=== PATIENT | female | born 1985 | race Caucasian/White ===

== ENCOUNTER 2019-08-11 20:16 | Emergency (ER) | payer OTHER, SELFPAY ==
[2019-08-11 20:17] VITALS: BP 144/76; PULSE 107; RESP 18; TEMP 37.3; O2SAT 94; BMI 50.6
[2019-08-11 20:37] VITALS: O2SAT 96
--- NOTE | 2019-08-11 20:50 | EKG12_ITS ---
Test Reason : SOB Blood Pressure : / mmHG Vent. Rate : 094 BPM Atrial Rate : 094 BPM P-R Int : 150 ms QRS Dur : 088 ms QT Int : 330 ms P-R-T Axes : 022 014 041 degrees QTc Int : 412 ms Normal sinus rhythm Normal ECG Confirmed by FRANKI VELASQUEZ, MIRTHA ([id number]), rewrite editor FARHANA RO ([id number]) on 08/16/2019 1:59:35 PM Referred By: DC Confirmed By:SAHRA DOAN MD
[2019-08-11] MEDS: Ipratropium/Albuterol Sulfate 3 ML AMPUL.NEB INHALATION (21:02)
[2019-08-11 21:06] VITALS: O2SAT 96
[2019-08-11 21:07] VITALS: PULSE 95; RESP 16
[2019-08-11 21:09] LABS: Absolute Lymphocyte Count 1.18 X10^3/uL (0.83-4.51); Absolute Neutrophil Count 2.7 X10^3/uL (2.0-7.7); Basophil# 0.02 X10^3/uL; Basophil% 0.4 % (0-1); Eosinophil# 0.04 X10^3/uL; Eosinophils% 0.9 % (0-5); Hematocrit 40.1 % (37-47); Hemoglobin 12.7 g/dL (12.0-15.0); Lymphocyte # 1.18 X10^3/ul (4.0); Lymphocyte % 25.8 % (19-41); Mean Corp Hgb Conc 31.7 g/dL (32-36); Mean Corpuscular Hgb 26.6 pg (27.0-32.0); Mean Corpuscular Volume 83.9 fL (81-99); Mean Platelet Vol. 9.6 fl (6.2-12.0); Monocyte# 0.67 X10^3/uL; Monocyte% 14.7 % (0-10); NRBC Flagged by Analyzer 0 % (0-5); Neutrophil # 2.65 X10^3/uL (2.7-7.7); Platelet Count 222 K/mm3 (150-450); RBC Distribution Width CV 13.7 % (11.6-14.6); RBC Distribution Width SD 41.9 fl (35.1-43.9); Red Blood Count 4.78 M/mm3 (4.2-5.4); White Blood Count 4.6 K/mm3 (4.4-11.0)
--- NOTE | 2019-08-11 21:22 | ED.VISSUMM ---
- ER Visit Summary Date of Service: 08/11/19 Chief Complaint: Shortness of breath History of Present Illness: The patient is a 33 F with a history of type 1 diabetes, hypertension, asthma. Patient's tested positive for coronavirus 19. She is having shortness of breath, cough, chest pain, headache, fatigue. Physical Examination: Afebrile and vital signs unremarkable except for heart rate of 107. Patient is nontoxic and in no acute distress. Heart regular. No respiratory distress. Skin appears normal. Test Results: EKG shows sinus rhythm at a rate of 94. No sign of ischemia or infarction pattern. Chest x-ray and labs are pending. Emergency Department Course and Treatment: Patient had coronavirus precautions. She was treated with DuoNeb and Toradol. We did not test her for COVID-19. Her is positive and I suspect the test has no clinical utility. She is positive based on her symptoms. I did check the work-up as above given her symptoms. Will reassess. CBC, BMP, troponin, chest x-ray showed nothing acute/unremarkable. Patient will be discharged home. Outpatient precautions. Symptomatic care. Return if worse. Treatment Plan: As above Disposition: Discharge Impression: COVID-19 suspected This note was generated with [employer] dictation software. It may contain incorrect words, spelling, and punctuation that were not noted in review of the chart prior to signing ED Disposition - Plan for ED Patient: Referrals: [facility] Doctor,Out of [NON-STAFF] -
--- NOTE | 2019-08-11 21:25 | RAD_ITS ---
STUDY: X-RAY CHEST REASON FOR EXAM: Female, 33 years old. SOB, TESTED POSITIVE FOR COVID YESTERDAY TECHNIQUE: Single frontal view of the chest. COMPARISON: None. FINDINGS: Cardiac silhouette unremarkable. Pulmonary vascularity unremarkable. Aorta unremarkable. No focal airspace opacities. No pleural effusions. Upper abdomen unremarkable. Osseous structures intact. No pneumothorax. RAD/Chest 1 View (Portable) IMPRESSION: No acute cardiopulmonary findings Electronically Signed: Lee Adams, at 22:02 EDT Tel , Service support ,
[2019-08-11 21:28] LABS: Anion Gap 8 (5-15); BUN 11 mg/dL (7-18); BUN/Creat Ratio 12.3 RATIO (10-20); Calcium,Total 8.3 mg/dL (8.5-10.1); Chloride 108 mmol/L (98-107); Creatinine, Serum 0.89 mg/dL (0.55-1.02); EST Glomerular Filtration Rate 77 mL/min (>60); Est Glom Filt Rate - Afr Amer 93 mL/min (>60); Estimated Creatinine Clearance 76.91 ml/min; Glucose 295 mg/dL (74-106); Potassium 3.5 mmol/L (3.5-5.1); Sodium Level 137 mmol/L (136-145)
--- NOTE | 2019-08-11 22:06 | ED.DEP ---
ED Disposition - Plan for ED Patient: Instructions: ED Upper Resp Infec No Abx Tx Prescriptions: Benzonatate [Tessalon Perle] 200 mg PO TID PRN PRN #20 cap PRN Reason: Cough Prescription Printed Referrals: Elise Parrish [NON-STAFF] - As Needed
[2019-08-11 22:17] VITALS: BP 146/76; PULSE 104; RESP 18; O2SAT 94
== END 2019-08-11 22:21 | disposition home or self-care (01) ==
PROVIDERS: Emergency Provider Emergency Medicine; PCP Family Medicine
DX: R06.02 Shortness of breath (principal); R07.9 Chest pain, unspecified; R05 Cough; R51 Headache; R53.83 Other fatigue; Z20.828 Contact with and (suspected) exposure to other viral communicable diseases; I10 Essential (primary) hypertension; E10.9 Type 1 diabetes mellitus without complications; J45.909 Unspecified asthma, uncomplicated; Z79.4 Long term (current) use of insulin; Z79.82 Long term (current) use of aspirin; Z79.899 Other long term (current) drug therapy
CPT/HCPCS: 71045; 80048; 84484; 85025; 93005; 94640; 99284; A4216

== ENCOUNTER 2019-08-16 14:31 | Emergency (ER) | payer OTHER, SELFPAY ==
[2019-08-16 14:33] VITALS: BP 120/75; PULSE 97; RESP 18; TEMP 36.6; O2SAT 94; BMI 50.6
[2019-08-16] MEDS: 0.9% Normal Saline 1,000 ML 1000 ML IV (15:01)
[2019-08-16] MEDS: Ondansetron 4 MG/2 ML Vial IV ×2 (15:01→18:18)
[2019-08-16 15:12] LABS: Absolute Lymphocyte Count 1.12 X10^3/uL (0.83-4.51); Absolute Neutrophil Count 2.8 X10^3/uL (2.0-7.7); Basophil# 0.01 X10^3/uL; Basophil% 0.2 % (0-1); Hematocrit 43.5 % (37-47); Lymphocyte # 1.12 X10^3/ul (4.0); Lymphocyte % 27.1 % (19-41); Mean Corp Hgb Conc 32.2 g/dL (32-36); Mean Corpuscular Hgb 26.9 pg (27.0-32.0); Mean Corpuscular Volume 83.5 fL (81-99); Mean Platelet Vol. 9.6 fl (6.2-12.0); Monocyte# 0.21 X10^3/uL; Monocyte% 5.1 % (0-10); NRBC Flagged by Analyzer 0 % (0-5); Neutrophil # 2.78 X10^3/uL (2.7-7.7); Neutrophil % 67.4 % (47-70); POSITIVE MORPHOLOGY YES; Platelet Count 207 K/mm3 (150-450); RBC Distribution Width SD 42.1 fl (35.1-43.9); Red Blood Count 5.21 M/mm3 (4.2-5.4); White Blood Count 4.1 K/mm3 (4.4-11.0)
[2019-08-16 15:20] LABS: Differential Indicated SCAN CRITERIA MET
--- NOTE | 2019-08-16 15:20 | RAD_ITS ---
STUDY: X-RAY CHEST REASON FOR EXAM: Female, 33 years old. Cough, fever, shortness of breath, was Dx with COVID last week TECHNIQUE: Single AP portable view of the chest. COMPARISON: Comparison is made with prior study dated August 11, 2019. FINDINGS: There now is evidence of bone bilateral focal infiltrates worse in the right lower lobe. There is no demonstrated pleural abnormality. Normal size heart. Normal mediastinum and mei. Normal visualized pulmonary arteries. Normal visualized aortic arch and descending thoracic aorta. Normal visualized thoracic spine. Normal visualized ribs, clavicles, and shoulders. There is no demonstrated abnormality of the visualized soft tissue structures of the upper abdomen. RAD/Chest 1 View (Portable) IMPRESSION: Bilateral pulmonary infiltrates worse in the right lower lobe. Follow-up is recommended. Electronically Signed: Yung Vidal, at 15:47 EDT , Service support ,
[2019-08-16 15:21] LABS: Internal QC Validated? YES +Cl - CLEAR BKGD; Pregnancy, Serum, hCG Quali. NEGATIVE Negative
[2019-08-16 15:29] LABS: ALB/GLOB Ratio 0.8 RATIO (0.9-2.4); AST(SGOT) 129 U/L (15-37); Alanine Aminotransfer ALT/SGPT 186 U/L (13-56); Alkaline Phosphatase 79 U/L (45-117); Anion Gap 5 (5-15); BUN 9 mg/dL (7-18); BUN/Creat Ratio 11.5 RATIO (10-20); Chloride 110 mmol/L (98-107); Creatinine, Serum 0.78 mg/dL (0.55-1.02); EST Glomerular Filtration Rate 89 mL/min (>60); Est Glom Filt Rate - Afr Amer 108 mL/min (>60); Estimated Creatinine Clearance 87.76 ml/min; Glucose 233 mg/dL (74-106); Potassium 3.4 mmol/L (3.5-5.1); Sodium Level 139 mmol/L (136-145)
--- NOTE | 2019-08-16 15:36 | ED.DCSUM_ITS ---
History of Present Illness Chief Complaint: Fever Narrative: Patient presenting for evaluation secondary to generalized illness. Patient reports that her last week tested positive for coronavirus. Patient states that about on Friday she started to develop symptoms herself. She was seen for this, and was told that she presumptively was positive but was not tested. Patient reports that since then she has been having diarrhea, cough, fevers, body aches. She reports that she has been having some worsening exertional dyspnea. Patient also reports that within the last 48 hours she has developed vomiting and has had difficulty with keeping down fluid or foods. Patient states that she does not have any blood in her emesis or in her stool. She does have an underlying history of asthma. Patient took Tylenol prior to arrival. Review of systems otherwise negative. Past Medical History - Allergies and Home Meds Allergies/Adverse Reactions: Allergies bupropion HCl [From Wellbutrin] Allergy (Verified 08/16/19 14:32) Other sumatriptan [From Imitrex] Allergy (Verified 08/16/19 14:32) Anaphylaxis sumatriptan succinate [From Imitrex] Allergy (Verified 08/16/19 14:32) Anaphylaxis Primary Care Physician: Sherley Mendoza MD [Primary Care Provider] - Prior records reviewed: Yes Past Medical History: - - Asthma, diabetes Lives: Spouse/ Significant Other Smoking Status: Former smoker Alcohol: None Drugs: None Review of Systems All systems negative except as indicated General: Reports: Fever, Malaise Eyes: Denies: Visual changes - bilaterally, Diplopia ENT: Denies: Rhinorrhea, Sore throat Cardiovascular: Denies: Chest pain, Palpitations Respiratory: Reports: Dyspnea, Cough Gastrointestinal: Reports: Nausea, Vomiting, Diarrhea Genitourinary: Denies: Dysuria, Hematuria, Frequency Musculoskeletal: Denies: Back pain, Extremity Pain Skin: Denies: Rash, Wounds Neurological: Denies: Headache, Weakness, Numbness Physical Exam Vital Signs/Narrative: Vital Signs Temp Pulse Resp BP Pulse Ox 08/16/19 14:33 97.8 F 97 18 120/75 94 Inital Vital Signs reviewed: Yes General: Well nourished, Well developed, No Acute Distress Head: Normocephalic, Atraumatic Eyes: Perrl, EOMI ENT: No rhinorrhea, Dry mucous membranes Neck: Supple, Nontender Cardiovascular: Regular rate, Regular rhythm, No murmurs Respiratory: No distress Abdomen: Soft, Nontender, Nondistended, Normal bowel sounds Back: Nontender, Normal Inspection Extremities: Nontender, No edema Skin: Normal color, No rash Neurological: Alert, Oriented x3, Cranial nerves II-XII grossly intact, Normal Strength, Normal Sensation Psychological: Normal affect, Normal Mood Diagnostic/Tx/Re-eval Clinical Impression(s) from Imaging Studies Chest X-Ray 08/16/19 15:20 IMPRESSION: Bilateral pulmonary infiltrates worse in the right lower lobe. Follow-up is recommended. Electronically Signed: Yung Vidal, at 15:47 EDT , Service support , Laboratory Data 08/16/19 08/16/19 08/16/19 15:00 15:00 15:00 WBC 4.1 L RBC 5.21 Hgb 14.0 Hct 43.5 MCV 83.5 MCH 26.9 L MCHC 32.2 RDW Std Deviation 42.1 RDW Coeff of Colin 14.0 Plt Count 207 MPV 9.6 Immature Gran % (Auto) 0.200 Neut % (Auto) 67.4 Lymph % (Auto) 27.1 [place] % (Auto) 5.1 Eos % (Auto) 0.0 Baso % (Auto) 0.2 Absolute Neuts (auto) 2.8 Absolute Lymphs (auto) 1.12 Nucleated RBC % 0 Differential Comment Platelet Estimate ADEQUATE RBC Morphology NORM C+C Sodium 139 Potassium 3.4 L Chloride 110 H Carbon Dioxide 24.0 Anion Gap 5 BUN 9 Creatinine 0.78 Estim Creat Clear Calc 87.76 Est GFR (MDRD) Af Amer 108 Est GFR (MDRD) Non-Af 89 BUN/Creatinine Ratio 11.5 Glucose 233 H Lactic Acid 1.6 Calcium 8.0 L Total Bilirubin 0.40 AST 129 H ALT 186 H Alkaline Phosphatase 79 Total Protein 7.0 Albumin 3.0 L Globulin 4.0 Albumin/Globulin Ratio 0.8 L Serum , Qual 08/16/19 15:00 WBC RBC Hgb Hct MCV MCH MCHC RDW Std Deviation RDW Coeff of Colin Plt Count MPV Immature Gran % (Auto) Neut % (Auto) Lymph % (Auto) [place] % (Auto) Eos % (Auto) Baso % (Auto) Absolute Neuts (auto) Absolute Lymphs (auto) Nucleated RBC % Differential Comment Platelet Estimate RBC Morphology Sodium Potassium Chloride Carbon Dioxide Anion Gap BUN Creatinine Estim Creat Clear Calc Est GFR (MDRD) Af Amer Est GFR (MDRD) Non-Af BUN/Creatinine Ratio Glucose Lactic Acid Calcium Total Bilirubin AST ALT Alkaline Phosphatase Total Protein Albumin Globulin Albumin/Globulin Ratio Serum , Qual NEGATIVE - Medical Decision Making Patient presented due to concern for coronavirus infection and inability to tolerate p.o. IV was established laboratory studies were obtained, patient was given Zofran and a liter normal saline. She had improvement of her nausea. Patient's chest x-ray shows bilateral infiltrates consistent with coronavirus infection. Swab is pending. CBC unremarkable, chemistry does not show s ignificant dehydration or electrolyte derangement, patient does have hyperglycemia. Patient has modest elevation of transaminases in the 100s, but no evidence of liver failure. I reevaluated the patient at 1600, she was able to walk in place next to the bed and did not have desaturation but she did feel somewhat lightheaded. I discussed with the patient about home treatment versus hospital treatments, and I feel at this point that the patient does not yet meet criteria for inpatient treatment as she is not hypoxic, dehydrated, and she is tolerating p.o. Patient did have some asymmetry on her chest x-ray by my personal review as well as radiology, so I will place the patient on some azithromycin as well as send her home with Zofran. Patient has normal QTC by EKG 5 days ago. Patient was recommended that she needs to follow-up virtually with primary care in 2 days, and return to the emergency department immediately should she have worsening of her symptoms. Patient was discharged in stable condition. ED Disposition - Plan for ED Patient: Disposition: Home or Assisted Living Diagnosis: COVID-19 Instructions: Pneumonia Prescriptions: Azithromycin [Zithromax Z-Donald] 250 mg PO UD #1 box Prescription Printed Ondansetron [Zofran Odt] 8 mg PO Q8H PRN PRN #20 tab PRN Reason: Nausea Prescription Printed Referrals: Sherley Mendoza MD [Primary Care Provider] - 2 Days Additional Instructions: You have COVID-19. You are being provided azithromycin due to the fact that there may be some additional bacterial pneumonia on top of your viral infection. Use your zofran to keep your stomach calm as needed. Drink plenty of fluids and get plenty of rest. Please self quarantine. Follow-up virtually with your primary care within the next 2 days to ensure you are not having worsening symptoms. Return immediately should you have worsening shortness of breath, or inability to tolerate p.o.
[2019-08-16 15:39] LABS: Lactic Acid 1.6 mmol/L (0.4-1.9)
[2019-08-16 15:53] LABS: Platelet Estimate ADEQUATE (ADEQ); Red Cell Morphology NORM C+C NORMAL (NORM C&C)
[2019-08-16 17:14] LABS: Probe Check PASS
[2019-08-16 18:16] VITALS: PULSE 97; RESP 20; O2SAT 96
[2019-08-16 18:19] VITALS: BP 138/85
[2019-08-16 18:25] LABS: Bedside Glucose 212 mg/dL (70-110)
[2019-08-16 19:11] VITALS: BP 122/66; PULSE 100; RESP 20; O2SAT 93
== END 2019-08-16 19:30 | disposition home or self-care (01) ==
PROVIDERS: Emergency Provider Emergency Medicine; PCP Family Medicine
DX: U07.1 COVID-19 (principal); J45.909 Unspecified asthma, uncomplicated; E11.9 Type 2 diabetes mellitus without complications; Z87.891 Personal history of nicotine dependence; Z79.4 Long term (current) use of insulin
CPT/HCPCS: 71045; 80053; 82962; 83605; 84703; 85025; 87635; 96361; 96374; 96376; 99283; G2023; J7030; A4216; J2405; U0003

== ENCOUNTER 2020-05-18 16:57 | Outpatient (RCR) | payer OTHER, MEDICAID, SELFPAY ==
[2020-05-18] MEDS: COVID-19 VACC, MRNA(PFIZER)/PF 30 MCG/0.3 ML SYRINGE IM (15:53)
[2020-06-08] MEDS: COVID-19 VACC, MRNA(PFIZER)/PF 30 MCG/0.3 ML SYRINGE IM (15:35)
== END 2020-05-18 23:59 ==
LOC: IMMUN 16:57
PROVIDERS: PCP Family Medicine; Visit Provider Family Medicine
DX: Z23 Encounter for immunization (principal)
CPT/HCPCS: 0001A; 0002A; 91300

== ENCOUNTER → 2023-09-29 | Outpatient (CLI) | payer OTHER, SELFPAY ==
[2023-09-29 12:54] VITALS: PULSE 102; PULSE 103; PULSE 113; PULSE 76; PULSE 80; PULSE 97; PULSE 98; O2SAT 85; O2SAT 91; O2SAT 92; O2SAT 93; O2SAT 95; O2SAT 97
--- NOTE | 2023-10-01 12:41 | PCM.PSN.6M ---
PSN 6 Minute Walk Test 6 Minute Walk Test 6 Minute Walk Test: 6 Minute Walk Test PSN:6-Minute Walk Test Start: 09/29/23 12:54 Freq: Status: Active Protocol: [id number].[id number] Document 09/29/23 12:54 EBERCARMELA (Rec: 09/29/23 12:57 EBERON [id number]) 6 Minute Walk Test Date Performed 09/29/23 Time Performed 12:30 Height 5 ft 4 in Weight: 290 lb Weight in Pounds 290.[address]: Yimi Alejo V Assistive device used: None Pre-test Oxygen Delivery Method Room Air Pulse Ox (%) 93 Pulse Rate (60-100 beats/min) 76 Dyspnea Ana Scale (0-10) 0 Exertion Ana Scale (6-20) 6 1st minute Oxygen Delivery Method Room Air Pulse Ox (%) 91 Pulse Rate (60-100 beats/min) 98 2nd minute Oxygen Delivery Method Room Air Pulse Ox (%) 85 Pulse Rate (60-100 beats/min) 103 H Dyspnea Ana Scale (0-10) 4 3rd minute Oxygen Flow Rate (L/min) (L/min) 2 Oxygen Delivery Method Nasal Cannula Pulse Ox (%) 95 Pulse Rate (60-100 beats/min) 98 4th minute Oxygen Flow Rate (L/min) (L/min) 2 Oxygen Delivery Method Nasal Cannula Pulse Ox (%) 93 Pulse Rate (60-100 beats/min) 97 5th minute Oxygen Flow Rate (L/min) (L/min) 2 Oxygen Delivery Method Nasal Cannula Pulse Ox (%) 92 Pulse Rate (60-100 beats/min) 102 H 6th minute Oxygen Flow Rate (L/min) (L/min) 2 Oxygen Delivery Method Nasal Cannula Pulse Ox (%) 91 Pulse Rate (60-100 beats/min) 113 H Dyspnea Ana Scale (0-10) 3 Exertion Ana Scale (6-20) 13 Post-test Oxygen Flow Rate (L/min) (L/min) 2 Oxygen Delivery Method Nasal Cannula Pulse Ox (%) 97 Pulse Rate (60-100 beats/min) 80 Full Laps Walked 16 Partial Lap, Number of Tiles Walked 2 Total Distance Walked (ft) 946 Interpretation Interpretation: The patient ambulated 946 feet over the course of 6 minutes beginning on room air without assistive devices. Pretesting oxygen saturation was noted to be 93% on room air. With ambulation, the marilin oxygen saturation was 85%. The patient required 2 L/min of supplemental oxygen in order to complete the remainder of the test, while maintaining appropriate oxygen saturations. Recommendations Recommendations: 2 L/min of supplemental oxygen should be utilized with exertion.
== END | disposition home or self-care (01) ==
PROVIDERS: PCP Family Medicine; Referring Provider Internal Medicine Pulmonary Disease; Visit Provider Internal Medicine Pulmonary Disease
DX: R06.02 Shortness of breath (principal)
CPT/HCPCS: 94618

== ENCOUNTER → 2025-02-08 | Outpatient (CLI) | payer OTHER, SELFPAY ==
--- NOTE | 2025-02-08 10:59 | ECHOCS_ITS ---
Reason For Study Reason For Study: STEFANY Procedure This was a 2D Doppler, Color Flow transthoracic echocardiogram. The patient is in sinus rhythm. The study was technically difficult. Contrast injection was performed. Exam performed in department. Left Ventricle Normal-sized left ventricle. Left ventricular EF by Delarosa's biplane: 65%. Normal diastolic function. No regional wall motion abnormalities noted. Right Ventricle Normal right ventricle. Normal systolic function. Unable to estimate RV systolic pressure due to insufficient tricuspid regurgitant envelope. Atria The left and right atria are normal. Right atrial pressure estimated at: 8 mmHg. Mitral Valve Normal mitral valve. No mitral stenosis. Trace mitral regurgitation. Tricuspid Valve Normal tricuspid valve. No tricuspid stenosis. Trace tricuspid regurgitation. Aortic Valve Normal trileaflet aortic valve. No hemodynamically significant aortic stenosis. No aortic regurgitation. Pulmonic Valve Normal pulmonic valve. No pulmonic stenosis. No pulmonic regurgitation. Great Vessels Normal sized aortic root. Normal ascending aorta. Pericardium/Pleural No pericardial effusion. Medication 22 gauge I.V. with prn adaptor inserted into right arm. Diluted definity 1ml given slow IV push to enhance endocardial definition. MMode/2D Measurements & Calculations LVIDd: 2.9 cm IVSd: 1.1 cm LVOT diam: 2.2 cm LVIDs: 1.8 cm LVPWd: 1.0 cm RVDd: 3.5 cm FS: 38.6 % LVOT area: 3.6 cm2 Ao root diam: 2.9 cm asc Aorta Diam: 3.0 cm LAV(MOD- bp): 21.4 ml LAV(MOD- bp) Indexed: 10.0 ml/m2 LAV(MOD- sp2): 25.1 ml LAV(MOD- sp4): 17.6 ml LVAd ap4: 31.7 cm2 LVAd ap2: 29.0 cm2 EDV(MOD- bp): 90.4 ml LVLd ap4: 8.2 cm LVLd ap2: 8.4 cm ESV(MOD- bp): 31.5 ml EDV(MOD-sp4): 98.8 ml EDV(MOD-sp2): 79.8 ml EF(MOD- bp): 65.2 % EDV(sp4-el): 104.0 ml EDV(sp2-el): 84.5 ml LVAs ap4: 18.5 cm2 LVAs ap2: 14.8 cm2 LVLs ap4: 7.1 cm LVLs ap2: 7.1 cm ESV(MOD-sp4): 39.7 ml ESV(MOD-sp2): 24.8 ml ESV(sp4-el): 41.0 ml ESV(sp2-el): 26.3 ml EF(MOD-sp4): 59.8 % EF(MOD-sp2): 68.9 % EF(sp4-el): 60.6 % SV(MOD-sp4): 59.1 ml SV(MOD-sp2): 55.0 ml SV(sp4- el): 63.0 ml SI(MOD-sp4): 27.5 ml/m2 SI(MOD-sp2): 25.6 ml/m2 Ao sinus diam: 3.[address] Junction: 2.5 cm LA A4 area: 9.8 cm2 LA dimension(2D): 3.4 cm RA A4 area: 5.3 cm2 TAPSE: 1.7 cm Time Measurements MV dec time: 0.22 sec Doppler Measurements & Calculations MV E max wilfrido: 62.8 cm/sec Lat Peak E' Wilfrido: 10.3 cm/sec Med Peak E' Wilfrido: 7.6 cm/sec MV A max wilfrido: 78.8 cm/sec E/E' lat: 6.1 E/E' med: 8.3 MV E/A: 0.80 Ao V2 max: 142.8 cm/sec LV V1 max: 116.8 cm/sec MV dec slope: 285.4 cm/sec2 Ao max P.2 mmHg LV V1 max P.5 mmHg Ao V2 mean: 116.2 cm/sec LV V1 mean P.5 mmHg Ao mean P.6 mmHg LV V1 mean: 91.1 cm/sec Ao V2 VTI: 23.9 cm LV V1 VTI: 20.8 cm AV (velocity ratio): 0.87 ROLANDO(I,D): 3.2 cm2 ROLANDO(V,D): 3.0 cm2 SV(LVOT): 75.8 ml PA V2 max: 112.2 cm/sec ECHO/Echo Complete W/ Contrast Interpretation Summary Normal left ventricular systolic function with an EF: 65% by Delarosa's biplane. Normal left ventricular diastolic function Normal right ventricular systolic function No hemodynamically significant valvular disease Ordering Physician: Yimi Alejo V Referring Physician: Yimi Alejo V Performed By: Yamini Giordano RDCS
== END | disposition home or self-care (01) ==
LOC: CVS 10:54
PROVIDERS: PCP Family Medicine; Referring Provider Internal Medicine Pulmonary Disease; Visit Provider Internal Medicine Pulmonary Disease
DX: G47.33 Obstructive sleep apnea (adult) (pediatric) (principal)
CPT/HCPCS: 93306; Q9957; A4216; C8929